=== PATIENT | female | born 1965 | race Caucasian/White ===

== ENCOUNTER 2017-02-15 17:13 | Emergency (ER) | payer OTHER, BC ==
[~2017-02-15] VITALS: Ht 172.7 cm; Wt 96.8 kg
[2017-02-15] MEDS ORDERED: EC-NAPROSYN500 MG PO (17:46)
[2017-02-15] MEDS ORDERED: PERCOCET 5/325M1 TAB PO (17:46)
[2017-02-15] MEDS ORDERED: FLUOXETINE HCL40 MG PO (17:56)
[2017-02-15] MEDS ORDERED: INVOKAMET 150-11 TAB PO (17:57)
[2017-02-15] MEDS ORDERED: LISINOP/HCTZ1 TA1 PO (17:57)
[2017-02-15] MEDS ORDERED: SERTRALINE HCL100 MG PO (17:58)
[2017-02-15] MEDS ORDERED: ATORVASTATIN CA40 MG PO (17:58)
[2017-02-15 18:24] VITALS: BP 149/78
== END 2017-02-15 18:24 | disposition home or self-care (01) | DRG 605 ==
LOC: ED 17:13
DX: S20.212A Contusion of left front wall of thorax, initial encounter (principal); S23.41XA Sprain of ribs, initial encounter; Y04.2XXA Assault by strike against or bumped into by another person, initial encounter; Y93.89 Activity, other specified; Y92.811 Bus as the place of occurrence of the external cause

== ENCOUNTER 2017-10-14 04:10 | Emergency (ER) | payer BC ==
[~2017-10-14] VITALS: Ht 172.7 cm; Wt 92.0 kg
[~2017-10-14 04:10] MED LIST: ATORVASTATIN CA40 MG PO; EC-NAPROSYN500 MG PO; FLUOXETINE HCL40 MG PO; INVOKAMET 150-11 TAB PO; LISINOP/HCTZ1 TA1 PO; PERCOCET 5/325M1 TAB PO; SERTRALINE HCL100 MG PO
[2017-10-14 04:15] VITALS: BP 158/96
[2017-10-14 04:50] LABS: INFLUENZA A NONE DETECTED (NONE DETECT); INFLUENZA B NONE DETECTED (NONE DETECT)
[2017-10-14] MEDS ORDERED: CEPHALEXIN500 MG PO (05:25)
[2017-10-14] MEDS ORDERED: FLONASE AL50 MCG/ACT (05:25)
[2017-10-14] MEDS ORDERED: ROBITUSSIN AC10 ML PO (05:25)
== END 2017-10-14 05:42 | disposition home or self-care (01) | DRG 153 ==
LOC: ED 04:10
PROVIDERS: Emergency Medicine
DX: J06.9 Acute upper respiratory infection, unspecified (principal); E11.9 Type 2 diabetes mellitus without complications; F17.210 Nicotine dependence, cigarettes, uncomplicated

== ENCOUNTER 2020-06-27 15:42 | Emergency (ER) | payer BC ==
[~2020-06-27 15:42] MED LIST changes: +CEPHALEXIN500 MG PO; +FLONASE AL50 MCG/ACT; +ROBITUSSIN AC10 ML PO
== END 2020-06-27 16:21 | disposition left against medical advice (07) | DRG 951 ==
LOC: ED 15:42 → LWOBS 16:21
DX: Z53.21 Procedure and treatment not carried out due to patient leaving prior to being seen by health care provider (principal)

== ENCOUNTER 2020-06-30 16:29 | Emergency (ER) | payer SELFPAY ==
[~2020-06-30] VITALS: Ht 172.7 cm; Wt 114.5 kg
[2020-06-30] MEDS ORDERED: METFORMIN500 M2 PO (17:37)
[2020-06-30] MEDS ORDERED: LOSARTAN POTASS50 MG PO (17:37)
[2020-06-30 18:05] LABS: HEMATOCRIT 46.8 % (37.0-47.0); HEMOGLOBIN 15.3 g/dl (12.0-16.0); IMMATURE GRANULOCYTES 0.4 % (0.0-5.0); MEAN CELL VOLUME 90.2 fL CALC (80.0-100.0); MEAN CORPUSCULAR HGB 29.5 pG CALC (26.0-32.0); MEAN CORPUSCULAR HGB CONC 32.7 g/dL CAL (32.0-36.0); NEUT# 5.75 thou/uL (2.00-7.15); RED BLOOD COUNT 5.19 mill/uL (4.20-5.60)
[2020-06-30 18:15] LABS: ALBUMIN 4.2 g/dL (3.2-5.0); ALKALINE PHOSPHATASE 57 u/l (38-126); ANION GAP 12 (6-22 (CALC)); BILIRUBIN, TOTAL 0.3 mg/dL (0.0-1.4); BUN 16 mg/dL (7-17); BUN/CREATININE RATIO 18 (12-20 (CALC)); CARBON DIOXIDE 26 mmol/l (22-30); CHLORIDE 107 mmol/l (95-108); CREATININE 0.9 mg/dL (0.5-1.0); GFR > 60 ML/MIN (>=60 (CALC)); GFR FOR AFR.AMER. > 60 ML/MIN (>=60 (CALC)); POTASSIUM 4.2 mmol/l (3.5-5.1); SGOT/AST 30 u/l (14-36); SODIUM 141 mmol/l (137-146); TOTAL PROTEIN 7.4 g/dL (6.3-8.2)
[2020-06-30 20:26] LABS: URINE BILIRUBIN - DIPSTICK NEGATIVE (NEGATIVE); URINE BLOOD DIPSTICK NEGATIVE (NEGATIVE); URINE COLOR YELLOW; URINE GLUCOSE - DIPSTICK NEGATIVE (NEGATIVE); URINE KETONE NEGATIVE (NEGATIVE); URINE LEUK ESTERASE NEGATIVE (NEGATIVE); URINE NITRITE - DIPSTICK NEGATIVE (Negative); URINE PH 6.5 (4.5-8.0); URINE PROTEIN - DIPSTICK NEGATIVE (NEG-TRACE); URINE SPECIFIC GRAVITY 1.015; URINE UROBILINOGEN - DIPSTICK 0.2 E.U./dL (0.2)
[2020-06-30] MEDS ORDERED: AMOXICILLIN500 MG PO (20:51)
[2020-06-30] MEDS ORDERED: FLOXIN OTIC0.3 % AD (20:51)
[2020-06-30] MEDS ORDERED: FLONASE AL50 MCG/ACT (20:52)
[2020-06-30 22:00] VITALS: BP 148/78
== END 2020-06-30 22:00 | disposition left against medical advice (07) | DRG 313 ==
LOC: ED 16:29
PROVIDERS: Emergency Medicine; Family Medicine
DX: R07.9 Chest pain, unspecified (principal); H66.91 Otitis media, unspecified, right ear; R59.0 Localized enlarged lymph nodes; J32.9 Chronic sinusitis, unspecified; E11.9 Type 2 diabetes mellitus without complications; I10 Essential (primary) hypertension; F17.210 Nicotine dependence, cigarettes, uncomplicated; Z79.84 Long term (current) use of oral hypoglycemic drugs; Z91.19 Patient's noncompliance with other medical treatment and regimen; Z20.828 Contact with and (suspected) exposure to other viral communicable diseases
CPT/HCPCS: Q9967

== ENCOUNTER 2022-06-22 06:24 | Day surgery (SDC) | payer BC ==
[~2022-06-22] VITALS: Ht 172.7 cm; Wt 105.2 kg
[~2022-06-22 06:24] MED LIST changes: +ALTOPREV20 MG PO; +AMOXICILLIN500 MG PO; +FLOXIN OTIC0.3 % AD; +HYDROCHLOROT PO; +LEXAPRO20 MG PO; +LOSARTAN POTASS50 MG PO; +METFORMIN500 M2 PO; +OZEMPIC4 MG
[2022-06-22 08:34] VITALS: BP 139/93
== END 2022-06-22 08:42 | disposition home or self-care (01) | DRG 951 ==
LOC: ENDO 06:24
PROVIDERS: ATTEND Surgery
PROC: 0DJD8ZZ Inspection of Lower Intestinal Tract, Via Natural or Artificial Opening Endoscopic (ICD-10-PCS; principal; 2022-06-22)
DX: Z12.11 Encounter for screening for malignant neoplasm of colon (principal); K57.30 Diverticulosis of large intestine without perforation or abscess without bleeding; I10 Essential (primary) hypertension; E11.9 Type 2 diabetes mellitus without complications; E78.5 Hyperlipidemia, unspecified; F17.200 Nicotine dependence, unspecified, uncomplicated